=== PATIENT | female | born 1955 | race Caucasian/White ===

== ENCOUNTER → 2016-04-14 | Outpatient (CLI) | payer OTHER ==
--- NOTE | 2016-04-14 18:03 | DX ---
Chest, Two Views at 1019 hours History: Cough, R05. Comparison: None. Findings: Cardiac silhouette is within normal range. Patchy opacity suggested in the right infrahilar region. Left lung is clear. No pleural effusion or pneumothorax. Impression: Possible early right lower lobe pneumonia. A Call Requested message has been communicated to Ronel Anderson via the [employer] Critical Result system on 04/14/2016 18:02, Message ID [id number].
== END ==
LOC: BRMIMAGING 10:12
PROVIDERS: ATTEND Physician Assistant Medical
DX: R91.8 Other nonspecific abnormal finding of lung field (principal)
CPT/HCPCS: 71020-PO

== ENCOUNTER → 2016-07-23 | Outpatient (CLI) | payer OTHER | LOC: BRMIMAGING 12:54 | PROVIDERS: ATTEND Physician Assistant Medical | DX: Z12.31 Encounter for screening mammogram for malignant neoplasm of breast (principal) | CPT/HCPCS: G0202 ==

== ENCOUNTER → 2018-08-01 | Outpatient (CLI) | payer OTHER | LOC: BRMIMAGING 08:26 | PROVIDERS: ATTEND Physician Assistant Medical | DX: Z12.31 Encounter for screening mammogram for malignant neoplasm of breast (principal) ==